=== PATIENT | male | born 1980 | race Caucasian/White ===

== ENCOUNTER 2024-07-01 19:07 | Emergency (ER) | payer SELFPAY ==
[2024-07-01 19:43] VITALS: BP 117/67; PULSE 78; RESP 18; TEMP 97.7; BMI 23.7
[2024-07-01] MEDS ORDERED: NALOXONE HCL 0.4 MG/ML VIAL IVPUSH ONE (20:44)
== END 2024-07-01 21:06 | disposition left against medical advice (07) ==
LOC: JER 19:07
DX: T40.2X1A Poisoning by other opioids, accidental (unintentional), initial encounter (principal); R41.82 Altered mental status, unspecified
CPT/HCPCS: 99282-25